=== PATIENT | female | born 1990 | race Two or more races ===

== ENCOUNTER 2018-05-30 02:30 | Emergency (ER) | payer OTHER ==
[2018-05-30] MEDS ORDERED: predniSONE TAB* 50 MG PO ONE (03:17)
[2018-05-30] MEDS ORDERED: hydrOXYzine HCL TAB* 50 MG PO ONE (03:18)
[2018-05-30] MEDS ORDERED: Famotidine TAB 40 MG(NF) 40 MG TAB PO ONE (03:18)
[2018-05-30] MEDS ORDERED: Famotidine TAB* 20 MG PO ONE (04:00)
[2018-05-30 04:14] VITALS: BP 121/73
--- NOTE | 2018-05-30 04:27 | ED ---
Allergic Reaction/Systemic - HPI Summary HPI Summary: Patient is a 28 y/o F presenting to ED with complaints of general diffuse rash with pruritus. Sx onset two hours ago. Patient states that she ate salmon for dinner but states that she has had salmon previously without this reaction. No SOB, airway is patent. No PMHx. On triage, associated severity is rated 2/10, nothing is noted to aggravate/alleviate Sx. Home medications and allergies are reviewed. - History of Current Complaint Chief Complaint: EDRashSkinAbscess Hx Obtained From: Patient Onset/Duration: Started hours ago - two, Still Present Timing: Constant, Lasting Hours - two Severity Currently: Mild - 2/10 Pain Intensity: 2 Pain Scale Used: 0-10 Numeric - 2/10 Location: Diffuse Character: Pruritus Aggravating Factor(s): Nothing Alleviating Factor(s): Nothing Associated Signs And Symptoms: Negative: Difficulty Breathing, Throat Tightening - Allergies/Home Medications Allergies/Adverse Reactions: Allergies Allergy/AdvReac Type Severity Reaction Status Date / Time chocolate flavor Allergy Rash Verified 05/30/18 02:35 PMH/Surg Hx/FS Hx/Imm Hx Sensory History: Denies: Hx Legally Blind, Hx Deafness Opthamlomology History: Denies: Hx Legally Blind EENT History: Denies: Hx Deafness Infectious Disease History: No Infectious Disease History: Reports: Traveled Outside the [place] in Last 30 Days - [place] - Family History Known Family History: Negative: Blood Disorder - Social History Alcohol Use: None Substance Use Type: Reports: None Smoking Status (MU): Never Smoked Tobacco Review of Systems Negative: Shortness Of Breath Positive: Rash - diffuse rash with pruritus All Other Systems Reviewed And Are Negative: Yes Physical Exam - Summary Physical Exam Summary: VITAL SIGNS: Reviewed. GENERAL: Patient is a well-developed and nourished female who is lying comfortable in the stretcher. Patient is not in any acute respiratory distress. HEAD AND FACE: No signs of trauma. No ecchymosis, hematomas or skull depressions. No sinus tenderness. EYES: PERRLA, EOMI x 2, No injected conjunctiva, no nystagmus. EARS: Hearing grossly intact. Ear canals and tympanic membranes are within normal limits. MOUTH: Oropharynx within normal limits. NECK: Supple, trachea is midline, no adenopathy, no JVD, no carotid bruit, no c- spine tenderness, neck with full ROM. CHEST: Symmetric, no tenderness at palpation LUNGS: Clear to auscultation bilaterally. No wheezing or crackles. CVS: Regular rate and rhythm, S1 and S2 present, no murmurs or gallops appreciated. ABDOMEN: Soft, non-tender. No signs of distention. No rebound no guarding, and no masses palpated. Bowel sounds are normal. EXTREMITIES: FROM in all major joints, no edema, no cyanosis or clubbing. NEURO: Alert and oriented x 3. No acute neurological deficits. Speech is normal and follows commands. SKIN: Dry and warm; diffuse hives at upper extremities, face, and upper chest Triage Information Reviewed: Yes Vital Signs On Initial Exam: Initial Vitals Temp Pulse Resp BP Pulse Ox 98.2 F 66 16 128/68 98 05/30/18 02:34 05/30/18 02:34 05/30/18 02:34 05/30/18 02:34 05/30/18 02:34 Vital Signs Reviewed: Yes Diagnostics - Vital Signs Vital Signs Temp Pulse Resp BP Pulse Ox 05/30/18 04:13 98.6 F 77 18 121/73 99 05/30/18 02:34 98.2 F 66 16 128/68 98 - Laboratory Lab Statement: Any lab studies that have been ordered have been reviewed, and results considered in the medical decision making process. Allergic Reaction Course/Dx - Course Course Of Treatment: Patient is a 28 y/o F presenting to ED with complaints of general diffuse rash with pruritus. Sx onset two hours ago. Patient states that she ate salmon for dinner but states that she has had salmon previously without this reaction. No SOB, airway is patent. No PMHx. On physical exam, diffuse hives at upper chest, face, and upper extremities are noted. During ED course , patient received prednisone 50 mg PO, atarax 50 mg PO, and Pepcid 40 mg PO. Patient reported relief in Sx. She will be discharged to home to follow up with PCP. - Diagnoses Provider Diagnoses: Allergic reaction Discharge - Sign-Out/Discharge Documenting (check all that apply): Patient Departure - discharge Patient Received Moderate/Deep Sedation with Procedure: No - Discharge Plan Condition: Stable Disposition: HOME Prescriptions: hydrOXYzine HCL TAB* [Atarax TAB 50 MG *] 50 mg PO TID PRN #15 tab PRN Reason: Itching predniSONE TAB* [Deltasone TAB*] 50 mg PO DAILY #5 tab Patient Education Materials: General Allergic Reaction (ED) Referrals: Karmen Almonte NP [Primary Care Provider] - 3 Days Additional Instructions: PLEASE RETURN TO THE EMERGENCY DEPARTMENT IMMEDIATELY FOR WORSENING OR CONCERNING SYMPTOMS. FOLLOW UP WITH YOUR PRIMARY CARE PHYSICIAN WITHIN THREE DAYS. - Attestation Statements Document Initiated by Scribe: Yes Documenting Scribe: [email or web address] ARTIS Provider For Whom Scribe is Documenting (Include Credential): SNEHA ESPINOSA MD Scribe Attestation: [email or web address], scribed for SNEHA ESPINOSA MD on 05/30/18 at 0431. Status of Scribe Document: Ready
== END 2018-05-30 04:13 | disposition home or self-care (01) ==
LOC: ED 02:30
DX: T78.1XXA Other adverse food reactions, not elsewhere classified, initial encounter (principal); X58.XXXA Exposure to other specified factors, initial encounter
CPT/HCPCS: 99283; A9270-GY; J7512